=== PATIENT | male | born 1975 | race Two or more races ===

== ENCOUNTER 2023-08-18 02:40 | Emergency (ER) | payer OTHER ==
[~2023-08-18] VITALS: Ht 167.6 cm; Wt 79.4 kg
[2023-08-18 03:07] VITALS: BP 107/73; TEMP 98.5; O2SAT 98
[2023-08-18] MEDS ORDERED: ACETAMINOPHEN ES 500 MG TABLET PO ONE (03:30)
[2023-08-18] MEDS ORDERED: VANCOMYCIN 1 GM in IV D5W 250 ML IV ONE (03:30)
[2023-08-18] MEDS ORDERED: IV NS 0.9% 1,000 ML BAG IV ONE (03:30)
[2023-08-18] MEDS ORDERED: IBUPROFEN 600 MG TABLET PO ONE (03:30)
[2023-08-18] MEDS ORDERED: CEFEPIME 1 GM in IV D5W 50 ML IV ONE (03:30)
== END 2023-08-18 04:02 | disposition left against medical advice (07) ==
LOC: ER 02:42
DX: S00.83XA Contusion of other part of head, initial encounter (principal); L03.116 Cellulitis of left lower limb; L03.115 Cellulitis of right lower limb; Y04.2XXA Assault by strike against or bumped into by another person, initial encounter; Y93.89 Activity, other specified; Y92.89 Other specified places as the place of occurrence of the external cause; Y99.8 Other external cause status
CPT/HCPCS: J0692; J3370; J7060